=== PATIENT | male | born 1990 | race Hispanic/Latino ===

== ENCOUNTER 2021-05-09 12:14 | Emergency (ER) | payer OTHER ==
--- NOTE | 2021-05-09 12:45 | EDPHYS ---
Physician Documentation [facility] Name: Mckinley Means Age: 31 yrs Sex: Male : 1990 Arrival Date: 05/09/2021 Time: 12:18 Bed DIS3 Private MD: ED Physician Obie Falcon HPI: 05/09 12:41 This 31 yrs old Male presents to ER via Ambulatory with complaints of Hand jmm Pain. 12:41 Onset: The symptoms/episode began/occurred gradually. Modifying factors: The symptoms jmm are alleviated by holding still, the symptoms are aggravated by movement. Associated signs and symptoms: Pertinent positives:. This is a 31-year-old male with no chronic medical conditions presents emerge department with complaints of left wrist pain. Patient denies specific injury but states that he does perform strenuous activity at work. Which include heavy lifting. Patient states he was diagnosed with an inflammatory condition with states while at work today he reaggravated it while pulling heavy equipment. . Historical: - Allergies: 12:28 No Known Allergies; vg1 - Home Meds: 12:28 None [Active]; vg1 - PMHx: 12:28 None; vg1 - Immunization history:: Adult Immunizations up to date, Client reports having NOT received the Covid vaccine. - Social history:: Smoking status: Reported history of juuling and/or vaping. ROS: 12:41 Constitutional: Negative for fever, chills, and weight loss, Cardiovascular: Negative jmm for chest pain, palpitations, and edema, Respiratory: Negative for shortness of breath, cough, wheezing, and pleuritic chest pain. 12:41 MS/extremity: Positive for pain. 12:41 All other systems are negative. Exam: 12:41 Constitutional: This is a well developed, well nourished patient who is awake, alert, jmm and in no acute distress. Head/Face: atraumatic. Eyes: EOMI, no conjunctival erythema appreciated ENT: Moist Mucus Membranes Neck: Trachea midline, Supple Chest/axilla: Normal chest wall appearance and motion. Cardiovascular: Regular rate and rhythm. No edema appreciated Respiratory: Normal respirations, no respiratory distress appreciated Abdomen/GI: Non distended, soft Back: Normal ROM Skin: General appearance color normal 12:41 Musculoskeletal/extremity: Acute left distal radial pain on palpation, positive Aleisha test, full radial pulse, compartments are soft, neurovascular intact. 12:41 Skin: Appearance: Color: normal in color. 12:41 Neuro: Orientation: is normal, Mentation: is normal, Memory: is normal. 12:41 Psych: Behavior/mood is pleasant, cooperative. Vital Signs: 12:25 BP 136 / 91; Pulse 80; Resp 16; Temp 97.7; Pulse Ox 100% ; Weight 97.52 kg; Height 5 vg1 ft. 11 in. (180.34 cm); Pain 8/10; 12:25 Body Mass Index 29.99 (97.52 kg, 180.34 cm) vg1 MDM: 12:36 Patient medically screened. [facility] 12:41 Data reviewed: vital signs, nurses notes. Counseling: I had a detailed discussion with [facility] the patient and/or guardian regarding: the historical points, exam findings, and any diagnostic results supporting the discharge/admit diagnosis, the need for outpatient follow up, to return to the emergency department if symptoms worsen or persist or if there are any questions or concerns that arise at home. ED course: Physical exam findings consistent with the de Quervain's tenosynovitis. Patient advised to follow-up with hand Ortho for further evaluation. Patient understood agrees plan of care. 05/09 12:37 Order name: Thumb Spica Splint; Complete Time: 13:22 [facility] Administered Medications: 12:47 Drug: Ketorolac 30 mg Route: IM; Site: left deltoid; kg 13:22 Follow up: Response: No adverse reaction kg 12:47 Drug: Decadron (dexamethasone) 10 mg Route: IM; Site: left deltoid; kg 13:22 Follow up: Response: No adverse reaction kg Disposition: 17:12 Co-signature as Attending Physician, Obie Falcon MD I agree with the assessment and rn plan of care. Attestation: The patient's history, exam findings, diagnostics, and a summary of any interventions or procedures was reviewed in detail with James CARY. Disposition Summary: 05/09/21 12:44 Discharge Ordered Location: Home [facility] Condition: Stable [facility] Diagnosis - De Quervain's tenosynovitis [facility] Followup: [facility] - With: Jed Hunter MD - When: 2 - 3 days - Reason: Recheck today's complaints, Continuance of care, Re-evaluation by your physician Followup: [facility] - With: Bebeto Gutierrez MD - When: 2 - 3 days - Reason: Recheck today's complaints, Continuance of care, Re-evaluation by your physician Followup: [facility] - With: Anibal Do MD - When: 2 - 3 days - Reason: Recheck today's complaints, Continuance of care, Re-evaluation by your physician Discharge Instructions: - Discharge Summary Sheet [facility] - De Querlacey's Tenosynovitis [facility] Forms: - Medication Reconciliation Form [facility] - Thank You Letter [facility] - Antibiotic Education [facility] - Prescription Opioid Use [facility] Prescriptions: - Ibuprofen 800 mg Oral Tablet - take 1 tablet by ORAL route every 8 hours As needed take with food; 30 tablet; [facility] Refills: 0, Product Selection Permitted Signatures: James King PA PA Obie Mata MD MD rn Garcia, Victoria RN RN vg1 Marlin Bruno RN RN kg
--- NOTE | 2021-05-09 12:45 | ER ---
Nurse's Notes [facility] Name: Mckinley Means Age: 31 yrs Sex: Male : 1990 Arrival Date: 05/09/2021 Time: 12:18 Bed DIS3 Private MD: Diagnosis: De Quervain's tenosynovitis Presentation: 05/09 12:25 Chief complaint: Patient states: Left hand pain began about a month ago. Saw PCP and vg1 was prescribed Baclofen. No imaging was done. States today at work pulled an object and a sharp pain began and radiated up to mid forearm.. Coronavirus screen: Vaccine status: Patient reports being unvaccinated. Ebola Screen: Patient negative for fever greater than or equal to 101.5 degrees Fahrenheit, and additional compatible Ebola Virus Disease symptoms. Initial Sepsis Screen: Does the patient meet any 2 criteria? No. Patient's initial sepsis screen is negative. Does the patient have a suspected source of infection? No. Patient's initial sepsis screen is negative. Risk Assessment: Do you want to hurt yourself or someone else? Patient reports no desire to harm self or others. Onset of symptoms was May 09, 2021. 12:25 Method Of Arrival: Ambulatory vg1 12:25 Acuity: MAYITO 4 vg1 Triage Assessment: 12:28 General: Appears in no apparent distress. comfortable, Behavior is calm, cooperative. vg1 Pain: Complains of pain in left hand and left arm. Historical: - Allergies: 12:28 No Known Allergies; vg1 - Home Meds: 12:28 None [Active]; vg1 - PMHx: 12:28 None; vg1 - Immunization history:: Adult Immunizations up to date, Client reports having NOT received the Covid vaccine. - Social history:: Smoking status: Reported history of juuling and/or vaping. Vital Signs: 12:25 BP 136 / 91; Pulse 80; Resp 16; Temp 97.7; Pulse Ox 100% ; Weight 97.52 kg; Height 5 vg1 ft. 11 in. (180.34 cm); Pain 8/10; 12:25 Body Mass Index 29.99 (97.52 kg, 180.34 cm) vg1 ED Course: 12:18 Patient arrived in ED. rg4 12:28 Triage completed. vg1 12:28 Arm band placed on. vg1 12:31 James King PA is PHCP. m 12:31 Obie Falcon MD is Attending Physician. [facility] 12:39 Marlin Bruno, RN is Primary Nurse. kg 12:44 Jed Hunter MD is Referral Physician. jmm 12:44 Bebeto Gutierrez MD is Referral Physician. jmm 12:44 Anibal Do MD is Referral Physician. jmm Administered Medications: 12:47 Drug: Ketorolac 30 mg Route: IM; Site: left deltoid; kg 13:22 Follow up: Response: No adverse reaction kg 12:47 Drug: Decadron (dexamethasone) 10 mg Route: IM; Site: left deltoid; kg 13:22 Follow up: Response: No adverse reaction kg Outcome: 12:44 Discharge ordered by . jmm 13:26 Patient left the ED. kg Signatures: James King PA PA Anni Burleson rg4 Eileen Salinas RN RN vg1 Marlin Bruno, HILL RN kg
[2021-05-09] MEDS ORDERED: dexAMETHasone 10 MG/ML VIAL ONE (13:07)
[2021-05-09] MEDS ORDERED: KETOROLAC 30 MG/ML INJ ONE (13:07)
[2021-05-09 13:35] VITALS: BP 136/91; TEMP 97.7; O2SAT 100
== END 2021-05-09 13:26 | disposition home or self-care (01) ==
LOC: ER 12:14
DX: M65.4 Radial styloid tenosynovitis [de Quervain] (principal)
CPT/HCPCS: 96372; 99282; J1100

== ENCOUNTER 2024-08-27 16:51 | Emergency (ER) | payer OTHER, SELFPAY ==
[2024-08-27] MEDS ORDERED: NA CHLORIDE 0.9% 1,000 ML ONE (17:58)
[2024-08-27 18:18] LABS: Absolute Lymphocytes (CBC) 0.1 K/uL (0.7-4.9); Absolute Neutrophil 5.6 K/uL (1.8-8.0); Basophils % 0.1 % (0-1.3); Eosinophils % 0.1 % (0-4.4); Hematocrit 42.4 % (39.6-49.0); Hemoglobin 14.5 g/dL (13.6-17.9); MCH 30.6 pg (27.0-35.0); MCHC 34.3 g/dL (32.0-36.0); MCV 89.4 fL (80-100); MPV 7.9 fL (7.6-11.3); Monocytes % 14.6 % (3.3-12.3); Neutrophils % 83.2 % (41.7-73.7); Nucleated Red Blood Cells % 0.1 % (0-0); Platelets 250 thou/uL (152-406); RBC Red Blood Cell Count 4.74 M/uL (4.33-5.43); Red Cell Distribution Width 12.8 % (12.1-15.2)
--- NOTE | 2024-08-27 18:24 | RAD REPORT ---
EXAM: Chest Pa And Lat (2 Views) HISTORY: 34 years Male Cough;Congestion COMPARISON: 05/08/2017 FINDINGS: LUNGS/PLEURA: The lungs are clear. No pleural effusions or pneumothorax. No pulmonary edema. MEDIASTINUM: The mediastinal silhouette is within normal limits. CARDIAC: The cardiac silhouette is within normal limits. UPPER ABDOMEN: No significant abnormality. BONES: No acute abnormality. LINES/TUBES/OTHER: N/A IMPRESSION: No evidence of acute cardiopulmonary disease.
[2024-08-27 18:51] LABS: SARS-CoV-2 Antigen CONTROL BLUE LINE VIS/BG OK; SARS-CoV-2 Antigen Rapid Res Negative (Negative)
[2024-08-27 18:52] LABS: Anion Gap 12.2 mEq/L (5.0-15.0); Potassium 3.2 mEq/L (3.5-5.1)
--- NOTE | 2024-08-27 19:09 | ER ---
Nurse's Notes [facility] Name: Mckinley Means Age: 34 yrs Sex: Male : 1990 Arrival Date: 08/27/2024 Time: 16:51 Bed 19 Private MD: Diagnosis: Viral infection, unspecified;Hypokalemia Presentation: 08/27 17:01 Chief complaint: Patient states: FLU-LIKE S/S SINCE THIS AM. Coronavirus screen: At bp this time, the client does not indicate any symptoms associated with coronavirus-19. Ebola Screen: No symptoms or risks identified at this time. Initial Sepsis Screen: Does the patient meet any 2 criteria? No. Patient's initial sepsis screen is negative. Does the patient have a suspected source of infection? No. Patient's initial sepsis screen is negative. Risk Assessment: Do you want to hurt yourself or someone else? Patient reports no desire to harm self or others. Onset of symptoms was August 27, 2024 at 06:00. 17:01 Method Of Arrival: Wheelchair bp 17:01 Acuity: MAYITO 4 bp Triage Assessment: 17:02 General: Appears in no apparent distress. uncomfortable, ill, Behavior is cooperative, bp appropriate for age, anxious. Pain: Complains of pain in GENERALIZED. EENT: No deficits noted. Neuro: No deficits noted. Cardiovascular: Rhythm is sinus tachycardia. Respiratory: No deficits noted. GI: Reports nausea, vomiting. : No signs and/or symptoms were reported regarding the genitourinary system. Derm: No deficits noted. Musculoskeletal: No deficits noted. Historical: - Allergies: 17:02 No Known Allergies; bp - Home Meds: 17:02 Cymbalta oral [Active]; bp - Immunization history:: Adult Immunizations up to date. - Infectious Disease History:: Denies. - Social history:: Smoking status: unknown. Screenin:20 [facility] ED Fall Risk Assessment (Adult) History of falling in the last 3 months, me1 including since admission No falls in past 3 months (0 pts) Confusion or Disorientation No (0 pts) Intoxicated or Sedated No (0 pts) Impaired Gait No (0 pts) Mobility Assist Device Used No (0 pt) Altered Elimination No (0 pt) Score/Fall Risk Level 0 - 2 = Low Risk Maintained a safe environment, Provided non-skid footwear, Hourly rounding (assess needs \T\ fall precautionary measures) done. Abuse screen: Denies threats or abuse. Nutritional screening: No deficits noted. Tuberculosis screening: No symptoms or risk factors identified. Assessment: 17:20 General: Appears in no apparent distress. well groomed, well developed, well nourished, me1 Behavior is calm, cooperative, appropriate for age, Reports cough, congestion, body aches, n/v since this morning. Pain: Denies pain. Neuro: Level of Consciousness is awake, alert, obeys commands, Oriented to person, place, time, situation, Appropriate for age. Cardiovascular: Patient's skin is warm and dry. Respiratory: Reports cough that is persistent Airway is patent Respiratory effort is even, unlabored, Respiratory pattern is regular, symmetrical. GI: Abdomen is flat, Reports nausea, vomiting. : No signs and/or symptoms were reported regarding the genitourinary system. EENT: Reports nasal congestion. Derm: Skin is intact, is healthy with good turgor, Skin is pale. Musculoskeletal: No signs and/or symptoms reported regarding the musculoskeletal system. Vital Signs: 17:01 BP 128 / 87; Pulse 100; Resp 20; Temp 97.5; Pulse Ox 100% ; bp 18:15 BP 125 / 74; Pulse 91; Resp 16; Pulse Ox 100% ; me1 19:15 BP 104 / 76; Pulse 86; Resp 16; Temp 98.3; Pulse Ox 100% ; me1 ED Course: 16:56 Patient arrived in ED. ra3 16:59 Alice Brothers PA-C [facility]. sb4 16:59 Jose M Navarro MD is Attending Physician. sb4 17:02 Triage completed. bp 17:02 Arm band placed on. bp 17:20 Patient has correct armband on for positive identification. Bed in low position. Call me1 light in reach. Side rails up X2. Provided Education on: POC. Verbalized understanding.. Client placed on continuous cardiac and pulse oximetry monitoring. NIBP monitoring applied. court monitor on. NIBP on. 17:20 No provider procedures requiring assistance completed. me1 17:25 Yaritza Mark, HILL is Primary Nurse. me1 18:00 Strep Sent. me1 18:00 Flu Sent. me1 18:00 SARS RAPID Sent. me1 18:00 BMP Sent. id1 18:00 CBC with Diff Sent. id1 18:00 Initial lab(s) drawn, by me, sent to lab. COVID swab sent to lab. Flu and/or RSV swab me1 sent to lab. Strep swab sent to lab. Inserted saline lock: 22 gauge in right antecubital area, using aseptic technique. 18:05 Chest Pa And Lat (2 Views) XRAY In Process Unspecified. EDMS 19:51 IV discontinued, intact, bleeding controlled, No redness/swelling at site. Pressure me1 dressing applied. Administered Medications: 18:04 Drug: NS 0.9% IV 1000 ml IV at 1000 ml once; to be given as a bolus over 60 minutes me1 Route: IV; Rate: 1000 ml; Site: right antecubital; 19:25 Follow up: Response: No adverse reaction; IV Status: Completed infusion id1 19:12 Drug: Potassium PO Effervescent Tablet 50 mEq PO once; dissolve in 4 ounces of water or [facility] juice Route: PO; 19:25 Follow up: Response: No adverse reaction [facility] Medication: 17:20 VIS not applicable for this client. id1 Outcome: 19:08 Discharge ordered by . sb4 19:52 Discharged to home ambulatory, with significant other, [facility] 19:52 Condition: stable 19:52 Discharge instructions given to patient, significant other, Instructed on discharge instructions, follow up and referral plans. Demonstrated understanding of instructions, follow-up care, 19:52 Patient left the ED. id1 Signatures: Dispatcher [employer] Sam Figueredo RN Alice Carvalho PA-C PA-C Yaritza Pina RN RN [facility] Heather Bloom ra3
--- NOTE | 2024-08-27 19:09 | EDPHYS ---
Physician Documentation [facility] Name: Mckinley Means Age: 34 yrs Sex: Male : 1990 Arrival Date: 08/27/2024 Time: 16:51 Bed 19 Private MD: ED Physician Jose M Navarro HPI: 08/27 17:25 This 34 yrs old Male presents to ER via Wheelchair with complaints of Flu sb4 Symptoms, Vomiting. 17:25 Patient reports flulike symptoms that began today with fever, chills, body aches, back sb4 pain, cough, chest congestion. States that he got concerned because he felt like his hands and face were numb and tingling. Reports some shortness of breath. Denies any chest pain. Denies any medical problems. States he has had 1 episode of emesis, no diarrhea. Historical: - Allergies: 17:02 No Known Allergies; bp - Home Meds: 17:02 Cymbalta oral [Active]; bp - Immunization history:: Adult Immunizations up to date. - Infectious Disease History:: Denies. - Social history:: Smoking status: unknown. ROS: 17:25 Cardiovascular: Negative for chest pain, palpitations, and edema, sb4 17:25 Constitutional: Positive for body aches, chills, fever, 17:25 Respiratory: Positive for cough, 17:25 Abdomen/GI: Positive for nausea and vomiting, 17:25 All other systems are negative, Exam: 17:25 Constitutional: This is a well developed, well nourished patient who is awake, alert, sb4 and in no acute distress. Head/Face: Normocephalic, atraumatic. Eyes: Extra-ocular motions intact. Periorbital areas with no swelling, redness, or edema. ENT: Mucous membranes moist. Cardiovascular: Regular rate and rhythm with a normal S1 and S2. Respiratory: No increased work of breathing, no retractions or nasal flaring. Abdomen/GI: Soft, non-tender, no distension. Skin: Warm, dry with normal turgor. Normal color with no rashes, no lesions, and no evidence of cellulitis. Vital Signs: 17:01 BP 128 / 87; Pulse 100; Resp 20; Temp 97.5; Pulse Ox 100% ; bp 18:15 BP 125 / 74; Pulse 91; Resp 16; Pulse Ox 100% ; me1 19:15 BP 104 / 76; Pulse 86; Resp 16; Temp 98.3; Pulse Ox 100% ; me1 MDM: 17:02 Medical Screening Exam initiated sb4 19:07 Differential diagnosis: viral Infection, bacterial infection, URI, bronchitis, sb4 pneumonia. Data reviewed: vital signs, nurses notes, lab test result(s), radiologic studies, and as a result, I will discharge patient. Counseling: I had a detailed discussion with the patient and/or guardian regarding the historical points, exam findings, and any diagnostic results supporting the discharge/admit diagnosis, lab results, radiology results, the need for outpatient follow up, for definitive care, to return to the emergency department if symptoms worsen or persist or if there are any questions or concerns that arise at home. 08/27 17:05 Order name: SARS RAPID; Complete Time: 18:52 sb4 08/27 17:05 Order name: Flu; Complete Time: 18:52 sb4 08/27 17:05 Order name: Strep sb4 08/27 17:24 Order name: CBC with Diff; Complete Time: 18:21 sb4 08/27 17:24 Order name: BMP; Complete Time: 19:01 sb4 08/27 18:53 Order name: Throat Culture EDMS 08/27 17:24 Order name: Chest Pa And Lat (2 Views) XRAY; Complete Time: 18:27 sb4 08/27 17:24 Order name: IV Start; Complete Time: 18:00 sb4 Administered Medications: 18:04 Drug: NS 0.9% IV 1000 ml IV at 1000 ml once; to be given as a bolus over 60 minutes me1 Route: IV; Rate: 1000 ml; Site: right antecubital; 19:25 Follow up: Response: No adverse reaction; IV Status: Completed infusion me1 19:12 Drug: Potassium PO Effervescent Tablet 50 mEq PO once; dissolve in 4 ounces of water or me1 juice Route: PO; 19:25 Follow up: Response: No adverse reaction me1 Disposition Summary: 08/27/24 19:08 Discharge Ordered Notes: Location: Home sb4 Problem: new sb4 Symptoms: have improved sb4 Condition: Stable sb4 Diagnosis - Viral infection, unspecified sb4 - Hypokalemia sb4 Followup: sb4 - With: Emergency Department - When: As needed - Reason: Trouble breathing, Worsening of condition Discharge Instructions: - Discharge Summary Sheet sb4 - Hypokalemia sb4 - Viral Illness, Adult sb4 Forms: - Work release form sb4 - Family Work Release sb4 - Patient Portal Instructions sb4 - Leadership Thank You Letter sb4 Addendum: 08/31/2024 07:27 Co-signature as Attending Physician, Jose M Navarro MD I agree with the assessment and c bro plan of care. Signatures: Dispatcher [employer] Jose M Rodriguez MD MD cha Peltier, Brian, RN RN Alice Bianchi PAShellieC PAShellieC sb4 Yaritza Mark, RN RN me1
[2024-08-27] MEDS ORDERED: POTASSIUM 25 MEQ EFFERV TAB ONE (19:11)
[2024-08-27 19:56] VITALS: O2SAT 100
[2024-08-27 19:58] VITALS: BP 104/76; TEMP 98.3
== END 2024-08-27 19:52 | disposition home or self-care (01) ==
LOC: ER 16:51
DX: B34.9 Viral infection, unspecified (principal); E87.6 Hypokalemia; Z11.52 Encounter for screening for COVID-19
CPT/HCPCS: 36415; 71046; 80048; 85025; 87070; 87081; 87804; 87811; 96360; 99285; J7030